=== PATIENT | female | born 1980 | race Caucasian/White ===

== ENCOUNTER → 2020-01-29 | Outpatient (CLI) | payer OTHER | LOC: COL.RAD 12:06 | DX: G40.309 Generalized idiopathic epilepsy and epileptic syndromes, not intractable, without status epilepticus (principal) | CPT/HCPCS: A9585 ==

== ENCOUNTER → 2020-02-18 | Outpatient (CLI) | payer OTHER | LOC: COL.CARD 12:41 | DX: G40.409 Other generalized epilepsy and epileptic syndromes, not intractable, without status epilepticus (principal) ==

== ENCOUNTER → 2022-04-26 | Outpatient (CLI) | payer OTHER | LOC: MC.RAD 07:41 | DX: Z12.31 Encounter for screening mammogram for malignant neoplasm of breast (principal) ==

== ENCOUNTER → 2023-08-21 | Outpatient (CLI) | payer OTHER | LOC: MC.RAD 16:49 | DX: Z12.31 Encounter for screening mammogram for malignant neoplasm of breast (principal) ==